=== PATIENT | male | born 1960 | race Caucasian/White ===

== ENCOUNTER 2018-12-27 07:31 | Observation (INO) | payer MEDICAID ==
[~2018-12-27] VITALS: Ht 177.8 cm; Wt 75.4 kg
--- NOTE | 2018-12-27 07:49 | NUR ---
PT WITH C/O L SHOULDER AND ARM PAIN FOR THE PAST COUPLE MONTHS. PT STATES HE RELAPSED WITH ETOH AND JOINED [facility], HE HAS BEEN UNDER A LOT OF STRESS RECENTLY. HE STATES HE FEELS SOB. ER PROVIDER IN TO GREGORY PT
[2018-12-27] MEDS ORDERED: ASPIRIN 81 MG TABLET CHEW PO ONE (08:00)
[2018-12-27] MEDS ORDERED: ASPIRIN 81 MG TABLET CHEW ONE (08:04)
[2018-12-27 08:17] LABS: BASOPHILS # (AUTO) 0.08 x10^3/uL (0-0.1); BASOPHILS % (AUTO) 1 % (0-1); EOSINOPHILS % (AUTO) 4 % (1-7); LYMPHOCYTES # (AUTO) 1.29 x10^3/uL (1-3.4); LYMPHOCYTES % (AUTO) 19 % (22-44); MD NO; MEAN CORPUSCULAR HEMOGLOBIN 29.7 pg (27.5-34.5); MEAN CORPUSCULAR HGB CONC 33.5 g/dL (33.2-36.2); MEAN CORPUSCULAR VOLUME 88.8 fL (81-97); MEAN PLATELET VOLUME 7.3 fL (7.4-10.4); MONOCYTES # (AUTO) 0.55 x10^3/uL (0.2-0.8); MONOCYTES % (AUTO) 8 % (2-9); NEUTROPHILS # (AUTO) 4.51 x10^3/uL (1.8-6.8); NEUTROPHILS % (AUTO) 67 % (42-75); PLATELET COUNT 391 x10^3/uL (130-400); RED BLOOD COUNT 4.98 x10^6/uL (4.38-5.82); RED CELL DISTRIBUTION WIDTH 13.9 % (9.4-14.8)
[2018-12-27 08:30] LABS: ALBUMIN 3.9 g/dL (3.4-5.0); ANION GAP 8 mmol/L (5-15); CHLORIDE 109 mmol/L (98-107)
[2018-12-27 08:33] LABS: TROPONIN I < 0.015 ng/mL (0.000-0.045)
--- NOTE | 2018-12-27 09:36 | NUR ---
PT MEDICATED PER MAR, PIV INITIATED. PT TO BE ADMITTED
--- NOTE | 2018-12-27 09:58 | NUR ---
ATTEMPTED TO CALL [facility] TO NOTIFY FACILITY OF PTS ADMISSION. MESSAGE LEFT FOR MR MARINELLI. REPORT GIVEN TO RECIEVING WANDA URIAS
[2018-12-27 10:35] VITALS: BP 131/91
[2018-12-27 11:05] VITALS: BP 139/94
[2018-12-27] MEDS ORDERED: ACETAMINOPHEN 325 MG TABLET PO PRN (11:30)
[2018-12-27] MEDS ORDERED: hydrALAzine 20 MG/ML, 1ML IVPush PRN (11:30)
[2018-12-27] MEDS ORDERED: morphine SULFATE 10 MG/ML, 1ML IVPush PRN (11:30)
[2018-12-27] MEDS ORDERED: ONDANSETRON 2MG/ML, 2ML IVPush PRN (11:30)
[2018-12-27] MEDS ORDERED: NITROGLYCERIN 0.4 MG BOTTLE (25 TABS) SL PRN (11:30)
[2018-12-27] MEDS ORDERED: PROMETHAZINE 25 MG/ML, 1ML IM PRN (11:30)
[2018-12-27] MEDS ORDERED: LABETALOL 5MG/ML, 20ML IVPush PRN (11:30)
[2018-12-27] MEDS: HEPARIN 5,000 UNITS/ML, 1ML SQ SCH ×2 (11:50→20:58)
[2018-12-27] MEDS: SODIUM CHLORIDE 0.9% 1,000 ML IV SCH (11:50)
[2018-12-27 12:05] LABS: TROPONIN I < 0.015 ng/mL (0.000-0.045)
[2018-12-27 12:40] VITALS: BP 124/80
[2018-12-27] MEDS ORDERED: NICOTINE 14MG/24 HR PATCH.TD24 TD ONE (17:00)
[2018-12-27 17:26] LABS: TROPONIN I < 0.015 ng/mL (0.000-0.045)
[2018-12-27 18:01] LABS: HEMOGLOBIN A1C 5.2 % (4.2-6.3)
[2018-12-27 18:59] VITALS: BP 142/88
[2018-12-27] MEDS ORDERED: ATORVASTATIN 80 MG TABLET PO SCH (21:00)
[2018-12-27 23:47] LABS: TROPONIN I < 0.015 ng/mL (0.000-0.045)
[2018-12-28 00:29] VITALS: BP 115/76
[2018-12-28] MEDS: SODIUM CHLORIDE 0.9% 1,000 ML IV SCH (02:05)
[2018-12-28 05:02] LABS: ALANINE AMINOTRANSFERASE 17 U/L (12-78); ALBUMIN 3.5 g/dL (3.4-5.0); ANION GAP 9 mmol/L (5-15); BASOPHILS % (AUTO) 1 % (0-1); CALCIUM 8.5 mg/dL (8.5-10.1); CHLORIDE 109 mmol/L (98-107); CREATININE 1.02 mg/dL (0.7-1.3); EOSINOPHILS # (AUTO) 0.63 x10^3/uL (0-0.4); EOSINOPHILS % (AUTO) 8 % (1-7); LYMPHOCYTES # (AUTO) 2.62 x10^3/uL (1-3.4); LYMPHOCYTES % (AUTO) 35 % (22-44); MD NO; MEAN CORPUSCULAR HEMOGLOBIN 29.6 pg (27.5-34.5); MEAN CORPUSCULAR HGB CONC 33.1 g/dL (33.2-36.2); MEAN CORPUSCULAR VOLUME 89.4 fL (81-97); MEAN PLATELET VOLUME 7.7 fL (7.4-10.4); MONOCYTES % (AUTO) 9 % (2-9); NEUTROPHILS # (AUTO) 3.49 x10^3/uL (1.8-6.8); NEUTROPHILS % (AUTO) 46 % (42-75); PLATELET COUNT 355 x10^3/uL (130-400); RED BLOOD COUNT 4.65 x10^6/uL (4.38-5.82)
[2018-12-28 05:05] LABS: ALKALINE PHOSPHATASE 59 U/L (45-117); BILIRUBIN,TOTAL 0.4 mg/dL (0.2-1.0); TOTAL PROTEIN 6.3 g/dL (6.4-8.2)
[2018-12-28] MEDS ORDERED: ASPIRIN 325 MG TABLET EC PO SCH (06:00)
[2018-12-28] MEDS: HEPARIN 5,000 UNITS/ML, 1ML SQ SCH ×2 (06:03→14:04)
[2018-12-28 06:35] VITALS: BP 118/77
[2018-12-28 12:20] VITALS: BP 150/96
[2018-12-28] MEDS ORDERED: ASPI-515 PO (15:59)
== END 2018-12-28 17:05 | disposition home or self-care (01) ==
LOC: ED 09:15 → INTOOBSV 09:20 → 5SO 09:20 → DCLOUNGE 12-28 17:00
PROVIDERS: ADMIT Internal Medicine; ATTEND Internal Medicine
DX: R07.9 Chest pain, unspecified (principal); R73.9 Hyperglycemia, unspecified; I82.409 Acute embolism and thrombosis of unspecified deep veins of unspecified lower extremity; F17.210 Nicotine dependence, cigarettes, uncomplicated; F10.21 Alcohol dependence, in remission
CPT/HCPCS: 36415; 71045; 80048; 80053; 82040; 83036; 83735; 84484; 85025; 85379; 93005; 93017; 96372; 99284; G0378; J1644; J7030; 99285